=== PATIENT | male | born 1975 | race Asian ===

== ENCOUNTER 2021-06-01 02:50 | Emergency (ER) | payer OTHER ==
[~2021-06-01] VITALS: Ht 175.3 cm; Wt 79.0 kg
[~2021-06-01 02:50] MED LIST: FOLI1TAB32 PO; MULT-449 PO; PHEN20EL8 PO; THIA100T67 PO
[2021-06-01 03:04] VITALS: BP 132/88
[2021-06-01] MEDS ORDERED: DIPH,PERTUSS(ACELL),TET VAC/PF 0.5 ML IM-VACC ONE ×2 (05:30→05:40)
[2021-06-01] MEDS ORDERED: LIDOCAINE-MPF 1%, 5ML INFIL ONE (05:30)
[2021-06-01] MEDS ORDERED: CEFAZOLIN 1,000 MG IM ONE (05:30)
[2021-06-01] MEDS ORDERED: CEFAZOLIN 1,000 MG ONE (05:40)
== END 2021-06-01 06:26 | disposition home or self-care (01) ==
LOC: ED 06:00
DX: S61.216A Laceration without foreign body of right little finger without damage to nail, initial encounter (principal); F17.200 Nicotine dependence, unspecified, uncomplicated; W25.XXXA Contact with sharp glass, initial encounter; Y93.89 Activity, other specified; Y92.89 Other specified places as the place of occurrence of the external cause; Y99.8 Other external cause status
CPT/HCPCS: 12002; 73130; 90471; 90715; 96372; 99284; J0690

== ENCOUNTER 2021-06-10 14:04 | Emergency (ER) | payer OTHER ==
--- NOTE | 2021-06-10 16:18 | NUR ---
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
--- NOTE | 2021-06-10 16:35 | NUR ---
ATM TECHNICIAN: NIL X2
--- NOTE | 2021-06-10 16:58 | NUR ---
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
== END 2021-06-10 18:07 ==
LOC: ED 14:30
DX: S61.411D Laceration without foreign body of right hand, subsequent encounter (principal); Z53.21 Procedure and treatment not carried out due to patient leaving prior to being seen by health care provider; X58.XXXD Exposure to other specified factors, subsequent encounter